=== PATIENT | male | born 1960 | race Caucasian/White ===

== ENCOUNTER 2023-02-21 14:57 | Outpatient (CLI) | payer OTHER, SELFPAY | END 2023-02-21 14:58 | disposition home or self-care (01) | LOC: LKVREF 14:58 | PROVIDERS: PCP Family Medicine; Visit Provider Family Medicine | DX: Z00.00 Encounter for general adult medical examination without abnormal findings (principal); Z12.5 Encounter for screening for malignant neoplasm of prostate | CPT/HCPCS: 84153 ==